=== PATIENT | male | born 1960 | race African-American/Black ===

== ENCOUNTER 2020-11-22 13:45 | Inpatient (IN) | payer BC ==
[~2020-11-22] VITALS: Ht 172.7 cm; Wt 103.3 kg
[2020-11-22 19:26] LABS: BASO # 0.1 10^3/uL (0.0-0.2); EOS # 0.1 10^3/uL (0.0-0.5); HEMATOCRIT 44.6 % (42.0-52.0); HEMOGLOBIN 14.7 g/dl (13.5-17.5); LYMPH % 38.5 % (24.0-44.0); MEAN CORPUSCULAR HEMOGLOBIN 33.1 pg (27.0-33.0); MEAN CORPUSCULAR VOLUME 100.5 fl (80.0-96.0); MONO # 0.6 10^3/uL (0.0-0.8); NEUTROPHILS # 2.4 10^3/uL (1.5-8.5); NEUTROPHILS % 46.3 % (36.0-66.0); PLATELET COUNT, AUTOMATED 192 10^3/uL (150-450); RED BLOOD COUNT 4.44 10^6/uL (4.30-6.10); WHITE BLOOD COUNT 5.1 10^3/uL (4.0-10.0)
[2020-11-22 19:53] LABS: BLOOD UREA NITROGEN 17 MG/DL (7-18); CALCIUM LEVEL 8.8 MG/DL (8.5-10.1); CARBON DIOXIDE LEVEL 29 MEQ/L (21-32); CHLORIDE LEVEL 110 MEQ/L (98-107); CREATININE FOR GFR 1.03 MG/DL (0.70-1.30); GLOMERULAR FILTRATION RATE > 60.0 (>56); GLUCOSE, FASTING 86 MG/DL (70-100); MAGNESIUM LEVEL 2.3 MG/DL (1.8-2.4); POTASSIUM SERUM 4.1 MEQ/L (3.5-5.1); SODIUM LEVEL 142 MEQ/L (136-145)
--- NOTE | 2020-11-22 20:32 | REPVR ---
PROCEDURE INFORMATION: Exam: CT Head Without Contrast Exam date and time: 11/22/2020 7:26 PM Age: 60 years old Clinical indication: Weakness, extremity; Right; Additional info: Right distal upper extremity weakness TECHNIQUE: Imaging protocol: Computed tomography of the head without contrast. Radiation optimization: All CT scans at this facility use at least one of these dose optimization techniques: automated exposure control; mA and/or kV adjustment per patient size (includes targeted exams where dose is matched to clinical indication); or iterative reconstruction. COMPARISON: No relevant prior studies available. FINDINGS: Brain: No intracranial mass, mass effect or midline shift. No acute intracranial hemorrhage. Focus of decreased brain attenuation, right frontal vertex measuring roughly 3 x 2 cm, axial image 20-21. Ventricles, cisterns, and sulci are otherwise normal in size for age. Paranasal sinuses: Imaged paranasal sinuses are normally aerated. Mastoid air cells: Mastoid air cells and middle ear structures are normally aerated. Orbital cavity: Imaged orbits are unremarkable. Bones/joints: No calvarial fracture or destructive process. Soft tissues: No focal extracranial soft tissue swelling. IMPRESSION: 1. No acute intracranial hemorrhage. 2. Focus of decreased right frontal parenchymal attenuation 3 x 2 cm which could represent an acute nonhemorrhagic infarct. Consider brain MRI Electronically signed by: Jaden Redd On 11/22/2020 20:31:56 PM
--- NOTE | 2020-11-22 20:35 | REPVR ---
PROCEDURE INFORMATION: Exam: CT Cervical Spine Without Contrast Exam date and time: 11/22/2020 7:26 PM Age: 60 years old Clinical indication: Weakness; Additional info: Right distal upper extremity weakness TECHNIQUE: Imaging protocol: Computed tomography images of the cervical spine without contrast. Radiation optimization: All CT scans at this facility use at least one of these dose optimization techniques: automated exposure control; mA and/or kV adjustment per patient size (includes targeted exams where dose is matched to clinical indication); or iterative reconstruction. COMPARISON: No relevant prior studies available. FINDINGS: Bones/joints: No traumatic segmental malalignment of cervical spine or craniocervical junction. Vertebral body height is maintained at all levels. No acute fracture. No destructive or blastic cervical spine osseous lesion. Discs/Spinal canal/Neural foramina: Intervertebral disc height is decreased at multiple levels, with typical degenerative pattern and associated endplate, articular pillar and uncovertebral spurs. Lungs: No concerning abnormality of the imaged lung apices. Soft tissues: Soft tissues show no concerning abnormality or asymmetry. IMPRESSION: 1. No acute fracture or traumatic subluxation of the cervical spine. 2. Multilevel degenerative disc and articular pillar arthropathy. Electronically signed by: Jaden Redd On 11/22/2020 20:34:39 PM
[2020-11-22] MEDS ORDERED: ATORVASTATIN 20 MG TAB PO ONE (21:15)
[2020-11-22] MEDS ORDERED: ASPIRIN 325 MG TAB PO ONE (21:15)
[2020-11-22] MEDS ORDERED: MAALOX 30 ML SUSP *UDC PO PRN (21:45)
[2020-11-22] MEDS ORDERED: ACETAMINOPHEN TAB 650MG DOSE (2X325MG) PO PRN (21:45)
[2020-11-22] MEDS ORDERED: LABETALOL 100MG/20ML VIAL IV PRN (21:45)
[2020-11-22] MEDS ORDERED: LORazepam 2 MG TAB PO PRN (21:45)
[2020-11-22] MEDS ORDERED: MOM 30ML SUSPENSION UDC PO PRN (21:45)
--- NOTE | 2020-11-22 21:52 | HPEPDOC ---
[facility] Medical History & Physical Date of Admission Nov 23, 2020 Date of Service: Nov 23, 2020 Attending Physician: FRANCIS FERRARI MD History and Physical TIME OF SERVICE: 955PM CHIEF COMPLAINT: weakness HISTORY OF PRESENT ILLNESS: For about 3 weeks has been feeling off. Over the last 5 days he has been feeling like he is in a mental fog. He lives in [place] but has a cabin in [address] [place] [address]; while driving to his cabin he suddenly found himself turning around to get on to the highway to [place] rather than stopping at his cabin. Over the last 3 days he has been making mistakes that are not characteristic and has had difficulties steering the wheel while he is driving. Over the last 2 days he noticed that his left hand was tingling, weak and he decided to come to the hospital today. He denies having any visual deficits, having difficulties walking or falling. 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 HOME MEDICATIONS: Please see below. PHYSICAL EXAMINATION: Vital Signs Date Time Temp Pulse Resp B/P (MAP) Pulse Ox O2 Delivery O2 Flow Rate FiO2 11/22/20 13:47 98.3 89 22 160/89 (112) 94 Room Air GENERAL APPEARANCE: well-nourished and developed/ NAD HEENT: EOMI / MMM&P CARDIOVASCULAR: RRR/NMRG LUNGS: CTAB on RA ABDOMEN: contour convex MUSCULOSKELETAL: NCAT / NURIS x 4 extremities INTEGUMENT: not diaphoretic NEUROLOGICAL: CN 2-12 grossly intact / speech not dysarthric / strength 5/5 except emergency room physician assistant strength at left hand is -5/5 PSYCHIATRIC: A&O x 3 / able to understand and follow all commands LABORATORY DATA: IMAGING: CT head IMPRESSION: 1. No acute intracranial hemorrhage. 2. Focus of decreased right frontal parenchymal attenuation 3 x 2 cm which could represent an acute nonhemorrhagic infarct. Consider brain MRI. CT cervical spine IMPRESSION: 1. No acute fracture or traumatic subluxation of the cervical spine. 2. Multilevel degenerative disc and articular pillar arthropathy. MRI brain IMPRESSION: Acute nonhemorrhagic multifocal infarcts, right frontal and parietal vertex and smaller lesions, right peritrigonal and posterior parietal. This may represent an embolic process or watershed distribution infarcts. CTA head IMPRESSION: Short-segment narrowing of the proximal right MCA M1 segment without atherosclerotic calcification and with normal enhancement distally. Roughly 50% short-segment diameter stenosis No intracranial large vessel arterial occlusive lesion. CTA neck IMPRESSION: Unremarkable CT Angiogram of the neck. MICROBIOLOGY: Respiratory panel negative ASSESSMENT: is a 60 yr old w a hx of HTN and class 1 obesity who is admitted for evaluation and management of acute multifocal embolic infarcts. PLAN: 1 Acute Multifocal Infarcts The symptoms have been present for several days therefore he was out of the tPA window discussed the CT scan findings with who recommended 325mg of ASA, completing the stroke work-u up and obtaining a SADIA (rather than TTE). Plan: admit to medical floor / telemetry for 48H /fall precautions / PT/OT/SPL consults / ARU screen / ASA 81mg daily / f/u lipid panel (target LDL 50% reduction from baseline) & for secondary prevention start statin / start low dose amlodipine / start escitalopram for 6 to 12 months (antidepressants post CVA have been shown to improve functional recovery and reduce dependency in individuals both with and without post stroke CVA) / f/u A1C / will ask the day time team to consult the Packing Machine Tender residential pest control technician for SADIA, if the SADIA is unrevealing the day time team may consider ordering a drug screen and Hypercoagulable work u p ( ESR, CRP, JANNIE, Lupus anticoagulant, Protein C & S, Antithrombin 3, Factor V) / f/u w (Neurologist tomorrow) 2 Essential HTN Plan: amlodipine 3 Alcohol Abuse Plan: thiamine, folic acid, MVI, Ativan per CIWA protocol, fall and seizure precautions 4 Class 1 obesity Complicates care DVT px w Heparin Dispo: home after at least 2 midnights stay Home Medications No Active Prescriptions or Reported Meds Allergies Coded Allergies: No Known Allergies (Unverified , 11/22/20) A-FIB/CHADSVASC A-FIB History Current/History of A-Fib/PAF?: No Current PO Anticoag Therapy: No FRANCIS FERRARI MD Nov 22, 2020 21:52
[2020-11-22] MEDS ORDERED: ISOVUE-370 76% 100ML VIAL As Ordered ONE (22:02)
[2020-11-22 22:47] LABS: CHOLESTEROL LEVEL 198 MG/DL (<200); HDL CHOLESTEROL 73 MG/DL (>40); TRIGLYCERIDES LEVEL 99 MG/DL (<150)
--- NOTE | 2020-11-22 22:47 | REPVR ---
PROCEDURE INFORMATION: Exam: MR Head Without Contrast Exam date and time: 11/22/2020 9:44 PM Age: 60 years old Clinical indication: Numbness / parasthesia; Left; Additional info: CVA TECHNIQUE: Imaging protocol: MR of the head without contrast. COMPARISON: CT Head without contrast 11/22/2020 7:16 PM FINDINGS: Correlating with findings on CT, at the right frontal and parietal vertex, there are multiple foci of abnormal diffusion and decreased ADC map signal consistent with acute nonhemorrhagic small vessel infarcts. The most confluent area lies just anterior to the central sulcus as seen on the CT. Similar small lesions are seen, right peritrigonal and posterior parietal at the parietooccipital junction. Corresponding abnormal T2 and FLAIR signal Midline structures and cerebellar tonsillar position appear normal. Ventricles, cisterns and sulci are symmetric and normal for age. No intracranial mass, midline shift or abnormal extra-axial fluid. No acute intracranial hemorrhage. No other abnormal white matter signal on FLAIR and T2 sequences. Optic chiasm and pituitary infundibulum appear normal. Normal vascular flow voids in major intracranial arteries and dural venous sinuses. Paranasal sinuses are normally aerated. Mastoid air cells are normally aerated. Optic globes and orbits are unremarkable. IMPRESSION: Acute nonhemorrhagic multifocal infarcts, right frontal and parietal vertex and smaller lesions, right peritrigonal and posterior parietal. This may represent an embolic process or watershed distribution infarcts Electronically signed by: Jaden Redd On 11/22/2020 22:47:29 PM
[2020-11-22 22:48] LABS: CHOLESTEROL RISK RATIO 2.712 (<5); LDL CHOLESTEROL 105 MG/DL (<100); NON-HDL-C 125 MG/DL
[2020-11-22 23:06] LABS: HEMOGLOBIN A1c 5.8 %
--- NOTE | 2020-11-22 23:28 | REPVR ---
PROCEDURE INFORMATION: Exam: CT Angiography Head With Contrast, Arteriography Exam date and time: 11/22/2020 9:44 PM Age: 60 years old Clinical indication: Other: Arm pain left; Additional info: CVA TECHNIQUE: Imaging protocol: Computed tomography angiography of the head with contrast. Exam focused on the arteries. 3D rendering (Not supervised by radiologist): MIP and/or 3D reconstructed images were created by the technologist. Radiation optimization: All CT scans at this facility use at least one of these dose optimization techniques: automated exposure control; mA and/or kV adjustment per patient size (includes targeted exams where dose is matched to clinical indication); or iterative reconstruction. Contrast material: ISO; Contrast volume: 100 ml; Contrast route: INTRAVENOUS (IV); COMPARISON: MRI-Brain without Contrast 11/22/2020 10:18 PM FINDINGS: Ventricles, cisterns and sulci are symmetric and appropriate for age. No intracranial mass or focal mass effect. No intracranial hemorrhage or midline shift. Left anterior circulation: Normal contrast opacification and luminal caliber in the petrous, cavernous and supraclinoid internal carotid arteries. Normal appearance of the anterior cerebral artery branches and middle cerebral artery branches through the MCA trifurcations. No occlusion, high-grade focal stenosis or dissection. No aneurysm. Right anterior circulation: Normal luminal caliber and enhancement in the petrous cavernous and supraclinoid right ICA.. Diminutive right A1 segment. Right anterior cerebral artery appears to be predominantly supplied by an anterior communicating artery. There is short-segment narrowing of the proximal right MCA M1 segment, on the order of 50% narrowed with normal enhancement distally. No visible atherosclerotic plaque in this region. This is seen best on series 401 image 27-29 Posterior circulation: Distal vertebral arteries enhance normally to the vertebrobasilar junction. Normally enhancing, normal caliber basilar artery, and normal superior cerebellar and posterior cerebral arteries. No occlusion, high-grade stenosis or aneurysm. Dural sinuses enhance normally. Bony structures show no acute fracture or destructive process. IMPRESSION: Short-segment narrowing of the proximal right MCA M1 segment without atherosclerotic calcification and with normal enhancement distally. Roughly 50% short-segment diameter stenosis No intracranial large vessel arterial occlusive lesion. Electronically signed by: Jaden Redd On 11/22/2020 23:28:03 PM
--- NOTE | 2020-11-22 23:30 | REPVR ---
PROCEDURE INFORMATION: Exam: CT Angiography Neck With Contrast Exam date and time: 11/22/2020 9:44 PM Age: 60 years old Clinical indication: Other: Arm pain left; Additional info: CVA TECHNIQUE: Imaging protocol: Computed tomography angiography of the neck with contrast. 3D rendering (Not supervised by radiologist): MIP and/or 3D reconstructed images were created by the technologist. Radiation optimization: All CT scans at this facility use at least one of these dose optimization techniques: automated exposure control; mA and/or kV adjustment per patient size (includes targeted exams where dose is matched to clinical indication); or iterative reconstruction. Contrast material: ISO; Contrast volume: 100 ml; Contrast route: INTRAVENOUS (IV); COMPARISON: CT Spine,cervical w/o contrast 11/22/2020 7:16 PM FINDINGS: Right common carotid, cervical ICA and proximal ECA demonstrate contrast opacification with no occlusion, flow limiting stenosis, or intimal flap to suggest dissection. Left common carotid, cervical ICA and proximal ECA demonstrate contrast opacification, with no occlusion, flow limiting stenosis, or intimal flap to suggest dissection. Vertebral arteries demonstrate normal course to the level of the skull base and show no occlusion, flow limiting stenosis or dissection. No flow limiting stenosis or anomaly of the great vessel origins. No concerning asymmetric neck soft tissue abnormality. IMPRESSION: Unremarkable CT Angiogram of the neck. REFERENCES: NASCET CRITERIA. The degree of internal carotid artery stenosis is based on NASCET criteria. Normal is no stenosis. Mild is less than 50% stenosis. Moderate is 50-69% stenosis. Severe is 70% to 99% stenosis. Total occlusion is no detectable patent lumen. Electronically signed by: Jaden Redd On 11/22/2020 23:30:07 PM
[2020-11-22] MEDS ORDERED: HOME MED LIST COMPLETE! XX SCH (23:45)
[2020-11-22 23:48] LABS: INR 1.1; PROTHROMBIN TIME 14.6 SECONDS (12.7-14.5)
[2020-11-22 23:49] LABS: PARTIAL THROMBOPLASTIN TIME 35.6 SECONDS (25.9-37.0)
[2020-11-23 01:52] LABS: RSV AMPLIFICATION NEGATIVE (NEGATIVE)
[2020-11-23] MEDS: HEPARIN SOD (PORCINE) 5000UNITS/ML 1ML VIAL/SYRINGE SC SCH ×3 (06:19→21:11)
[2020-11-23 08:21] LABS: HEMATOCRIT 44.9 % (42.0-52.0); HEMOGLOBIN 14.6 g/dl (13.5-17.5); MEAN CORPUSCULAR HEMOGLOBIN 32.5 pg (27.0-33.0); MEAN CORPUSCULAR HGB CONC 32.5 g/dl (32.0-36.5); PLATELET COUNT, AUTOMATED 182 10^3/uL (150-450); RED BLOOD COUNT 4.49 10^6/uL (4.30-6.10); WHITE BLOOD COUNT 4.6 10^3/uL (4.0-10.0)
[2020-11-23 08:40] LABS: BLOOD UREA NITROGEN 17 MG/DL (7-18); CALCIUM LEVEL 8.8 MG/DL (8.5-10.1); CARBON DIOXIDE LEVEL 28 MEQ/L (21-32); CHLORIDE LEVEL 109 MEQ/L (98-107); CREATININE FOR GFR 1.04 MG/DL (0.70-1.30); GLOMERULAR FILTRATION RATE > 60.0 (>56); GLUCOSE, FASTING 90 MG/DL (70-100); POTASSIUM SERUM 4.3 MEQ/L (3.5-5.1); SODIUM LEVEL 142 MEQ/L (136-145)
[2020-11-23] MEDS: FOLIC ACID 1 MG TAB PO SCH (09:48)
[2020-11-23] MEDS: ASPIRIN 81 MG CHEW TABLET PO SCH (09:48)
[2020-11-23] MEDS: MULTIVITAMINS/MINERALS THERAP 1 TAB PO SCH (09:48)
[2020-11-23] MEDS: ESCITALOPRAM OXALATE 5MG TABLET (LEXAPRO) PO SCH (09:48)
[2020-11-23] MEDS: ATORVASTATIN 20 MG TAB PO SCH (09:48)
[2020-11-23] MEDS: THIAMINE 100 MG TAB PO SCH ×2 (09:49→21:11)
--- NOTE | 2020-11-23 14:37 | CR ---
CONSULTATION DATE: 11/23/2020 REFERRING PHYSICIAN: FRANCIS FERRARI MD REASON FOR CONSULTATION: Left sided weakness. HISTORY OF PRESENT ILLNESS: Davion Singh is a 60-year-old man who was admitted to [facility] as he has been feeling off for the last three weeks according to the admission note. He told me in person that he has been feeling off since Saturday the week before, the last 10 days. The day he was driving home from work and felt he was off while driving. He thought as if he had mental fog. He has a cabin in this region and was staying at his cabin. Over the last few days, he started noticing that his left arm was weak. He thought that he may have pulled his left shoulder. He also started feeling left leg weakness. At times, he felt his speech was slurred. There was no problem with his vision. He had a headache one day over the last 10 days. He did not feel any irregular heartbeat or palpitations. He generally does not have much headaches. He denies any neck pain or back pain, dysphagia, diplopia, falls, loss of consciousness or head injuries. He saw his doctor who told him that he may be having a stroke and directed him to come to the Emergency Department. CT of the head showed focus of decreased attenuation in the right frontal region 3 x 2 cm in size concerning for ischemic stroke. CT scan of the cervical spine showed multilevel degenerative disc disease and facet joint arthritis. MRI scan of brain showed small multiple right frontoparietal peritrigonal ischemic strokes. CTA of the brain showed focal narrowing of right middle cerebral artery, 50%. CTA of neck was unremarkable. CBC was normal. Basic metabolic profile was normal. PAST MEDICAL HISTORY: 1. Possible hypertension. HOME MEDICATIONS: None except Male Overdrive for erection as needed. ALLERGIES: None. SOCIAL HISTORY: He denies smoking or illicit drugs. He drinks three alcoholic beverages a day. 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 FAMILY HISTORY: Father had diabetes. REVIEW OF SYSTEMS: All systems were reviewed and found to be noncontributory except as mentioned in the history of present illness. PHYSICAL EXAMINATION: Temperature is 98.3, pulse is 89, respiratory rate 22, blood pressure is 160/89, 94% saturation on room air. Heart: Regular rate and rhythm. Lungs are clear to auscultation. Abdomen is soft, nontender and nondistended. No pedal edema. No musculoskeletal abnormalities. No rash. No signs of meningeal irritation. Patient is awake, alert and oriented to place, person and time. Normal speech, comprehension and repetition. Extraocular muscles are intact. No facial weakness. Tongue and uvula are midline. 5/5 strength in right arm and leg. Left arm and left leg strength is 5-/5. He has slowing of left hand rapid movements. Normal sensation throughout. No dysmetria. Gait is normal. ASSESSMENT: 1. Small multiple right frontoparietal and peritrigonal acute ischemic strokes. 2. Hypertension. 3. Rule out cardiac source, coagulopathy and vasculopathy. PLAN: 1. Transesophageal echocardiogram and consider loop recorder if SADIA is unremarkable. 2. Blood tests to look for dyslipidemia, coagulopathy and vasculopathy. 3. Aspirin 81 mg p.o. daily and Plavix 75 mg p.o. daily until all of his test results are available. 4. Lipitor 40 mg p.o. daily. 5. Allow permissive hypertension and keep systolic blood pressure below 180 and diastolic blood pressure below 100. 6. Follow-up with is primary care physician in [place], [place]. If patient stays in this region, he can follow-up with our office as well in 1-2 weeks after hospital discharge. He should follow-up with Cardiology if he does get a loop recorder if SADIA is unremarkable.
--- NOTE | 2020-11-23 14:43 | IPNPDOC ---
Text Note Date of Service The patient was seen on 11/23/20. NOTE Subjective: No any acute events overnight. Patient stated that he feels better in the morning but continues to have slight weakness of the left part of the body Objective: GENERAL APPEARANCE: NAD HEENT: no scleral icterus, no JVD, EOMI CARDIOVASCULAR: S1S2 LUNGS: CTA ABDOMEN: soft & not tender w palpation MUSCULOSKELETAL: no cyanosis, no swelling INTEGUMENT: no generalized pallor NEUROLOGICAL: Left mouth droop, left arm strength 4 out of 5, left leg strength 4 out of 5, follows commands, speech not dysarthric Assessment and plan Patient is 60 years old male with past medical history of hypertension presented to hospital with left-sided weakness. Patient was found to have on MRI Acute nonhemorrhagic multifocal infarcts, right frontal and parietal vertex and smaller lesions, right peritrigonal and posterior parietal Acute ischemic multifocal Infarcts Neurology team recommended SADIA CTA neck did not show significant carotid stenosis Aspirin 81 mg daily, statin Coagulation panel I talked to Dr. Rodriguez, he will proceed with SADIA and loop recorder placement if patient agrees Telemetry PT/OT Alcohol abuse Continue CIWA Obesity BMI 34.6 Complicated care Hypertension Continue amlodipine Blood pressure under control DVT prophylaxis with heparin VS,Fishbone, I+O VS, Fishbone, I+O Laboratory Tests 11/22/20 18:51 11/23/20 07:52 Vital Signs Date Time Temp Pulse Resp B/P (MAP) Pulse Ox O2 Delivery O2 Flow Rate FiO2 11/23/20 14:11 97.3 74 16 140/83 (102) 97 Room Air RONIT NEWELL Nov 23, 2020 14:43
[2020-11-23 14:59] VITALS: BP 138/82
[2020-11-23 15:00] VITALS: BP 138/82
[2020-11-23] MEDS: CLOPIDOGREL 75 MG TAB PO SCH (15:10)
[2020-11-23 18:00] VITALS: BP 157/89
--- NOTE | 2020-11-23 19:03 | ECGEPIP ---
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
[2020-11-23 19:30] VITALS: BP 152/89
[2020-11-23 23:30] VITALS: BP 138/86
[2020-11-24] VITALS (7 sets, daily range): BP systolic 136–155; BP diastolic 79–101
[2020-11-24 05:58] LABS: BASO % 0.9 % (0.0-1.0); EOS # 0.1 10^3/uL (0.0-0.5); EOS % 1.2 % (0.0-3.0); HEMATOCRIT 43.2 % (42.0-52.0); HEMOGLOBIN 14.2 g/dl (13.5-17.5); LYMPH # 1.3 10^3/uL (1.5-5.0); LYMPH % 29.4 % (24.0-44.0); MEAN CORPUSCULAR HEMOGLOBIN 32.5 pg (27.0-33.0); MEAN CORPUSCULAR HGB CONC 32.9 g/dl (32.0-36.5); MEAN CORPUSCULAR VOLUME 98.9 fl (80.0-96.0); MONO # 0.5 10^3/uL (0.0-0.8); NEUTROPHILS # 2.5 10^3/uL (1.5-8.5); PLATELET COUNT, AUTOMATED 183 10^3/uL (150-450); RED BLOOD COUNT 4.37 10^6/uL (4.30-6.10); WHITE BLOOD COUNT 4.3 10^3/uL (4.0-10.0)
[2020-11-24] MEDS: HEPARIN SOD (PORCINE) 5000UNITS/ML 1ML VIAL/SYRINGE SC SCH ×3 (05:59→20:33)
[2020-11-24 06:26] LABS: ALBUMIN 3.2 GM/DL (3.2-5.2); ALT/SGPT 25 U/L (12-78); BILIRUBIN,TOTAL 0.5 MG/DL (0.2-1.0); BLOOD UREA NITROGEN 14 MG/DL (7-18); CALCIUM LEVEL 8.8 MG/DL (8.5-10.1); CARBON DIOXIDE LEVEL 27 MEQ/L (21-32); CHLORIDE LEVEL 106 MEQ/L (98-107); GLOMERULAR FILTRATION RATE > 60.0 (>56); GLUCOSE, FASTING 107 MG/DL (70-100); MAGNESIUM LEVEL 2.3 MG/DL (1.8-2.4); POTASSIUM SERUM 4.2 MEQ/L (3.5-5.1); SODIUM LEVEL 141 MEQ/L (136-145); TOTAL PROTEIN 6.9 GM/DL (6.4-8.2)
--- NOTE | 2020-11-24 08:41 | ECGEPIP ---
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
[2020-11-24] MEDS: ASPIRIN 81 MG CHEW TABLET PO SCH (09:39)
[2020-11-24] MEDS: ESCITALOPRAM OXALATE 5MG TABLET (LEXAPRO) PO SCH (09:39)
[2020-11-24] MEDS: FOLIC ACID 1 MG TAB PO SCH (09:42)
[2020-11-24] MEDS: ATORVASTATIN 20 MG TAB PO SCH (09:42)
[2020-11-24] MEDS: MULTIVITAMINS/MINERALS THERAP 1 TAB PO SCH (09:43)
[2020-11-24] MEDS: THIAMINE 100 MG TAB PO SCH ×2 (09:43→20:32)
[2020-11-24] MEDS: CLOPIDOGREL 75 MG TAB PO SCH (09:43)
--- NOTE | 2020-11-24 10:11 | IPNPDOC ---
Text Note Date of Service The patient was seen on 11/24/20. NOTE Subjective: No any acute events overnight. Patient stated that he feels better, left mouth droop significantly improved Objective: GENERAL APPEARANCE: NAD HEENT: no scleral icterus, no JVD, EOMI CARDIOVASCULAR: S1S2 LUNGS: CTA ABDOMEN: soft & not tender w palpation MUSCULOSKELETAL: no cyanosis, no swelling INTEGUMENT: no generalized pallor NEUROLOGICAL: Left mouth droop, left arm strength 4 out of 5, left leg strength 4 out of 5, follows commands, speech not dysarthric Assessment and plan Patient is 60 years old male with past medical history of hypertension presented to hospital with left-sided weakness. Patient was found to have on MRI Acute nonhemorrhagic multifocal infarcts, right frontal and parietal vertex and smaller lesions, right peritrigonal and posterior parietal Acute ischemic multifocal Infarcts Neurology team recommended SADIA CTA neck did not show significant carotid stenosis Aspirin 81 mg daily, Plavix 75 mg daily, statin Coagulation panel pending Lipid panel shows increased LDL to [address] Rodriguez, he will proceed with SADIA and loop recorder placement today Telemetry shows no atrial fibrillation overnight EKG shows sinus rhythm PT/OT Alcohol abuse Continue CIWA Obesity BMI 34.6 Complicated care Hypertension I increased the dose of amlodipine from 2.5 to 5 mg for better blood pressure control DVT prophylaxis with heparin VS,Fishbone, I+O VS, Fishbone, I+O Laboratory Tests 11/24/20 05:36 Vital Signs Date Time Temp Pulse Resp B/P (MAP) Pulse Ox O2 Delivery O2 Flow Rate FiO2 11/24/20 09:43 72 155/101 11/24/20 03:30 96.7 15 98 Room Air I&O- Last 24 Hours up to 6 AM 11/24/20 06:00 Intake Total 380 ml Output Total 0 ml Balance 380 ml RONIT NEWELL DO Nov 24, 2020 10:11
[2020-11-24] MEDS ORDERED: LIDOCAINE 1% SDV 30ML VIAL As Ordered ONE (13:36)
[2020-11-24] MEDS ORDERED: propofoL 200 MG/20 ML VIAL As Ordered ONE (14:05)
[2020-11-24] MEDS ORDERED: MIDAZOLAM INJ 2MG/2ML VIAL (J2250 PER 1MG) As Ordered ONE ×2 (14:10→15:04)
[2020-11-24] MEDS ORDERED: fentaNYL 100 MCG/2 ML INJECTION (J3010) As Ordered ONE (14:10)
[2020-11-24] MEDS ORDERED: CETACAINE SPRAY 5GM As Ordered ONE (14:28)
[2020-11-24] MEDS ORDERED: ceFAZolin 1GM VIAL (J0690 PER 500MG) As Ordered ONE (14:29)
[2020-11-24] MEDS: ceFAZolin SOD 1 GM in D5W MINI-BAG PLUS 50 ML IV SCH ×2 (14:30→16:34)
[2020-11-24] MEDS ORDERED: GLYCOPYRROLATE INJ 0.2 MG/ML 2 ML VIAL As Ordered ONE (15:04)
--- NOTE | 2020-11-24 16:34 | RO ---
OPERATIVE NOTE DATE OF OPERATION: 11/24/2020 PREOPERATIVE DIAGNOSIS: Cardiogenic stroke. POSTOPERATIVE DIAGNOSIS: Cardiogenic stroke. FINDINGS: Cardiogenic stroke. PROCEDURE PERFORMED: Implantation of Medtronic subcutaneous cardiac rhythm monitor. SURGEON: Juaquin Rodriguez M.D. INDUSTRIAL RADIOGRAPHER: None. ANESTHESIA: Lidocaine 1% local/monitored anesthetic care. SPECIMENS: None. ESTIMATED BLOOD LOSS: Less than 1 mL. BLOOD PRODUCTS REPLACED: None. DRAINS: None. COMPLICATIONS: None. PROCEDURE DESCRIPTION: Patient was prepped and draped over the left anterior chest. An incision approximately 1 cm in length was made with a #15 blade at approximately the left fourth interspace one inch lateral to the left parasternal border. Lidocaine 1% was used for local anesthetic. The guide and the insertion tool was placed into the incision and advanced in a caudal direction parallel to the anterior chest in the subcutaneous tissue. The insertion tool was rotated 180 degrees. Next, the punch was placed into insertion tool and used to advance the cardiac rhythm monitor into the subcutaneous tissue. The punch was removed and then the insertion tool was removed, leaving the cardiac rhythm monitor in situ. The skin was then approximated temporarily using a 4-0 Biosyn placed subcuticular with the free ends of the suture protruding 1 cm through the skin on both ends. Next, three layers of Dermabond was applied. The suture was used to keep tension on the incision line to keep it nice and close together until the glue dried. Once Dermabond was dried, the Biosyn suture was pulled through the incision line and removed entirely. The patient tolerated the procedure well without any immediate complications. The subcutaneous cardiac nurse implanted was a Medtronic LINQ II, model LNQ22 with serial #[id number]. Initial R wave amplitude was 0.32 millivolts. Good P wave and QRS morphology was visible on visual inspection. Dannie Beebe MD
--- NOTE | 2020-11-24 16:34 | ECHO ---
ECHOCARDIOGRAM DATE OF PROCEDURE: 11/24/2020 PREPROCEDURE DIAGNOSIS: Cryptogenic stroke. POSTPROCEDURE DIAGNOSIS: Cryptogenic stroke. FINDINGS: Normal transesophageal echocardiogram. Negative saline bubble study for detection of intracardiac shunting. PROCEDURE PERFORMED: Transesophageal echocardiogram with saline bubble study. PROCEDURE PERFORMED BY: Juaquin Rodriguez M.D. SENIOR ACCOUNTING ANALYST: None. INTRAVENOUS SEDATION: Intravenous (IV) propofol per FILLING AND STAPLING MACHINE OPERATOR. COMPLICATIONS: None. PROCEDURE DESCRIPTION: Rhythm was sinus. Patient received Cetacaine spray to the back of the pharynx at the start of the procedure. After receiving IV sedation with IV propofol administered by the FILLING AND STAPLING MACHINE OPERATOR, the esophageal intubation was accomplished without difficulty by Dr. Rodriguez using a [employer] 3-dimensional transesophageal echocardiogram probe. The rhythm was sinus. The left and right ventricles appeared normal in size and systolic function and without regional wall motion abnormalities. Left ventricular ejection fraction appeared 60%-65% by visual assessment. All the cardiac valves were structurally and functionally normal. Trace mitral regurgitation was present and mild pulmonic regurgitation was present and within physiologic limits. No masses, thrombi, or vegetations were seen in the heart. Atrial septum appeared intact anatomically and by color flow Doppler. Saline bubble study times one was performed using 8 mm of normal saline, 1 mL of propofol, and 1 mL of air, which was agitated back and forth between two 10 mL syringes via a 3-way stop clock, and its contents were injected by the FILLING AND STAPLING MACHINE OPERATOR for the bubble study. Patient was sedated to the point where he could not cooperate with performing a Valsalva maneuver, so instead a belly push was performed. No shunting of bubbles was seen from right heart to left heart, and no bubbles were seen entering the left atrium at all. No pericardial effusion. Distal aortic arch and ascending thoracic aorta were normal. CONCLUSIONS: 1. Normal transesophageal echocardiogram (SADIA). 2. Negative saline bubble study for detection of right to left intracardiac shunting or right to left intrapulmonary shunting.
[2020-11-25] MEDS ORDERED: NS 3,100 ML in IV 1 EA IV ONE (01:30)
[2020-11-25 01:48] VITALS: BP 133/78
[2020-11-25] MEDS ORDERED: VANCOMYCIN HCL 1,000 MG, VIAL MATE ADAPTER 1 EACH in NS 250 ML IV ONE ×3 (02:00→06:00)
[2020-11-25 02:03] LABS: BASO % 0.3 % (0.0-1.0); EOS % 0.1 % (0.0-3.0); HEMATOCRIT 41.5 % (42.0-52.0); HEMOGLOBIN 13.8 g/dl (13.5-17.5); LYMPH % 9.8 % (24.0-44.0); MEAN CORPUSCULAR HEMOGLOBIN 32.5 pg (27.0-33.0); MEAN CORPUSCULAR HGB CONC 33.3 g/dl (32.0-36.5); MEAN CORPUSCULAR VOLUME 97.9 fl (80.0-96.0); MONO # 0.5 10^3/uL (0.0-0.8); MONO % 4.5 % (2.0-8.0); NEUTROPHILS # 8.8 10^3/uL (1.5-8.5); NEUTROPHILS % 84.9 % (36.0-66.0); PLATELET COUNT, AUTOMATED 170 10^3/uL (150-450); RED BLOOD COUNT 4.24 10^6/uL (4.30-6.10); WHITE BLOOD COUNT 10.3 10^3/uL (4.0-10.0)
[2020-11-25 02:38] LABS: ALBUMIN 3.1 GM/DL (3.2-5.2); ALT/SGPT 25 U/L (12-78); BILIRUBIN,TOTAL 0.4 MG/DL (0.2-1.0); BLOOD UREA NITROGEN 16 MG/DL (7-18); CALCIUM LEVEL 8.3 MG/DL (8.5-10.1); CARBON DIOXIDE LEVEL 25 MEQ/L (21-32); CHLORIDE LEVEL 105 MEQ/L (98-107); CREATININE FOR GFR 1.25 MG/DL (0.70-1.30); GLOMERULAR FILTRATION RATE > 60.0 (>56); GLUCOSE, FASTING 152 MG/DL (70-100); POTASSIUM SERUM 4.3 MEQ/L (3.5-5.1); SODIUM LEVEL 140 MEQ/L (136-145); TOTAL PROTEIN 6.7 GM/DL (6.4-8.2)
--- NOTE | 2020-11-25 02:43 | IPNPDOC ---
Text Note Date of Service The patient was seen on 11/25/20. NOTE #SIRS vs Sepsis The patient has had fevers w a HR >95. Plan: initiate code purple / start Vancomycin & Zosyn pending blood cx, UA, chest xray, lactic acid and MRSA results VS,Fishbone, I+O VS, Fishbone, I+O Laboratory Tests 11/24/20 05:36 11/25/20 01:48 Vital Signs Date Time Temp Pulse Resp B/P (MAP) Pulse Ox O2 Delivery O2 Flow Rate FiO2 11/25/20 01:48 98.8 86 18 133/78 (96) 98 Room Air I&O- Last 24 Hours up to 6 AM 11/25/20 05:59 Intake Total 900 ml Output Total 0 ml Balance 900 ml FRANCIS FERRARI MD Nov 25, 2020 02:43
--- NOTE | 2020-11-25 04:25 | REPVR ---
PROCEDURE INFORMATION: Exam: XR Chest Exam date and time: 11/25/2020 2:09 AM Age: 60 years old Clinical indication: Other: Fever and tachycardia TECHNIQUE: Imaging protocol: XR of the chest. Views: 1 view. COMPARISON: No relevant prior studies available. FINDINGS: Tubes, catheters and devices: Overlying leads. Cardiac loop recorder. Lungs: Patchy right perihilar and confluent right lower lung airspace opacity. Left lung is clear. Pleural spaces: Unremarkable. No pleural effusion. No pneumothorax. Heart/Mediastinum: Unremarkable. No cardiomegaly. Bones/joints: Unremarkable. IMPRESSION: Patchy and confluent infiltrate within the right perihilar region and right lower lung consistent with pneumonia. Follow-up chest radiographs are recommended to ensure resolution. Electronically signed by: Sean Bryan On 11/25/2020 04:25:09 AM
[2020-11-25] MEDS: HEPARIN SOD (PORCINE) 5000UNITS/ML 1ML VIAL/SYRINGE SC SCH ×3 (05:18→21:00)
[2020-11-25] MEDS: PIPERACILLIN/TAZOBACTAM SOD 3.375 GM in D5W MINI-BAG PLUS 50 ML IV SCH ×4 (05:18→20:59)
[2020-11-25 06:00] VITALS: BP 135/78
[2020-11-25] MEDS ORDERED: ceFAZolin SOD 2 GM in IV 1 EA IV ONE (06:00)
[2020-11-25 06:36] LABS: HEMATOCRIT 37.1 % (42.0-52.0); HEMOGLOBIN 12.5 g/dl (13.5-17.5); MEAN CORPUSCULAR HEMOGLOBIN 32.9 pg (27.0-33.0); MEAN CORPUSCULAR HGB CONC 33.7 g/dl (32.0-36.5); MEAN CORPUSCULAR VOLUME 97.6 fl (80.0-96.0); PLATELET COUNT, AUTOMATED 159 10^3/uL (150-450)
[2020-11-25 06:57] LABS: ALBUMIN 2.7 GM/DL (3.2-5.2); ALT/SGPT 20 U/L (12-78); BILIRUBIN,TOTAL 0.5 MG/DL (0.2-1.0); BLOOD UREA NITROGEN 13 MG/DL (7-18); CALCIUM LEVEL 7.4 MG/DL (8.5-10.1); CARBON DIOXIDE LEVEL 22 MEQ/L (21-32); CHLORIDE LEVEL 110 MEQ/L (98-107); CREATININE FOR GFR 0.98 MG/DL (0.70-1.30); GLOMERULAR FILTRATION RATE > 60.0 (>56); GLUCOSE, FASTING 118 MG/DL (70-100); MAGNESIUM LEVEL 1.7 MG/DL (1.8-2.4); SODIUM LEVEL 142 MEQ/L (136-145); TOTAL PROTEIN 5.9 GM/DL (6.4-8.2)
[2020-11-25 07:02] LABS: ATYPICAL LYMPH 4 % (0-5); LYMPHOCYTES 9 % (16-44); MONOCYTES 6 % (0-5); NEUTROPHILS 79 % (28-66); PLATELET ESTIMATE NORMAL (NORMAL); POLYCHROMASIA 1+
[2020-11-25 07:03] LABS: ANISOCYTOSIS 1+
--- NOTE | 2020-11-25 07:30 | T-ECHO ---
DATE OF PROCEDURE: 11/24/2020 PREPROCEDURE DIAGNOSIS: Cryptogenic stroke. POSTPROCEDURE DIAGNOSIS: Cryptogenic stroke. FINDINGS: Normal transesophageal echocardiogram. Negative saline bubble study for detection of intracardiac shunting. PROCEDURE PERFORMED: Transesophageal echocardiogram with saline bubble study. PROCEDURE PERFORMED BY: Juaquin Rodriguez M.D. COMPUTATIONAL SCIENTIST: None. INTRAVENOUS SEDATION: Intravenous (IV) propofol per SPECIAL MACHINE STITCHER. COMPLICATIONS: None. PROCEDURE DESCRIPTION: Rhythm was sinus. Patient received Cetacaine spray to the back of the pharynx at the start of the procedure. After receiving IV sedation with IV propofol administered by the SPECIAL MACHINE STITCHER, the esophageal intubation was accomplished without difficulty by Dr. Rodriguez using a [employer] 3-dimensional transesophageal echocardiogram probe. The rhythm was sinus. The left and right ventricles appeared normal in size and systolic function and without regional wall motion abnormalities. Left ventricular ejection fraction appeared 60%-65% by visual assessment. All the cardiac valves were structurally and functionally normal. Trace mitral regurgitation was present and mild pulmonic regurgitation was present and within physiologic limits. No masses, thrombi, or vegetations were seen in the heart. Atrial septum appeared intact anatomically and by color flow Doppler. Saline bubble study times one was performed using 8 mm of normal saline, 1 mL of propofol, and 1 mL of air, which was agitated back and forth between two 10 mL syringes via a 3-way stop clock, and its contents were injected by the SPECIAL MACHINE STITCHER for the bubble study. Patient was sedated to the point where he could not cooperate with performing a Valsalva maneuver, so instead a belly push was performed. No shunting of bubbles was seen from right heart to left heart, and no bubbles were seen entering the left atrium at all. No pericardial effusion. Distal aortic arch and ascending thoracic aorta were normal. CONCLUSIONS: 1. Normal transesophageal echocardiogram (SADIA). 2. Negative saline bubble study for detection of right to left intracardiac shunting or right to left intrapulmonary shunting. [facility]
[2020-11-25] MEDS: ASPIRIN 81 MG CHEW TABLET PO SCH (09:36)
[2020-11-25] MEDS: ESCITALOPRAM OXALATE 5MG TABLET (LEXAPRO) PO SCH (09:36)
[2020-11-25] MEDS: ATORVASTATIN 20 MG TAB PO SCH (09:36)
[2020-11-25] MEDS: FOLIC ACID 1 MG TAB PO SCH (09:36)
[2020-11-25] MEDS: amLODIPine 5 MG TAB PO SCH (09:37)
[2020-11-25] MEDS: CLOPIDOGREL 75 MG TAB PO SCH (09:37)
[2020-11-25] MEDS: MULTIVITAMINS/MINERALS THERAP 1 TAB PO SCH (09:37)
[2020-11-25] MEDS: THIAMINE 100 MG TAB PO SCH ×2 (09:37→20:59)
[2020-11-25 14:00] VITALS: BP_SYST 141; BP_SYST 195; BP_DIAS 79; BP_DIAS 83
--- NOTE | 2020-11-25 16:00 | IPNPDOC ---
Text Note Date of Service The patient was seen on 11/25/20. NOTE Subjective: Patient is a 60-year-old male who initially presented with left arm weakness and was diagnosed with a stroke who was found to have a fever last night who was found to have pneumonia. Patient says he was feeling weak last night but is feeling better. Patient was started on antibiotics and states he is doing well at this time. Review of systems: General: Patient denies fevers HEENT: Patient denies headaches Cardiovascular: Patient denies chest pain Respiratory: Patient denies shortness of breath, cough GI: Patient denies abdominal pain, nausea, vomiting, diarrhea : Patient denies increased frequency or pain with urination Extremities: Patient denies swelling or pain in extremities Neurological: Patient denies numbness or tingling in legs Physical exam: Vitals: See below General: Alert and oriented male patient who was sitting up in bed when I walked in. Patient did not appear to be in any acute distress. HEENT: Normocephalic, atraumatic, moist mucous membranes. Neck: No lymphadenopathy or thyromegaly Cardiac: Regular rate and rhythm, no murmurs, normal S1, normal S2 Pulm: Crackles in the right base otherwise clear to auscultation bilaterally Abd: Nondistended, nontender to palpation, normal bowel sounds Ext: No edema bilateral lower extremities Neuro: Patient has 5/5 strength in right upper extremity but 4/5 strength in the left upper extremity Labs: See below Imaging: Chest x-ray performed on 11/25/2020 is reported to show patchy inf iltrate within the right perihilar region and right lower lung consistent with pneumonia. Follow-up chest radiographs are recommended to ensure resolution. Assessment/plan: 60-year-old male who initially presented with a CVA who was found to have pneumonia after being septic last night. 1. SIRS versus sepsis. Patient was found to have a fever of greater than 101 F taken orally, leukocytosis of 10.3 with a heart rate of 95 with a lactic acidosis. Patient was initially started on vancomycin and Zosyn however, once the pneumonia was found in his MRSA screen was negative, vancomycin has been discontinued at this time. We will continue to monitor the patient. Patient can be switched to oral antibiotics hopefully tomorrow as his sepsis is resolved and patient may build to be discharged tomorrow. 2. Pneumonia. We will continue with IV Zosyn at this time and switch him over to oral. 3. CVA. Patient had SADIA and loop recorder placed. SADIA was normal according to the report with a negative saline bubble study for detection of intracardiac shunting. Patient will need physical therapy upon discharge. 4. Alcohol abuse. Continue CIWA. 5. Obesity. BMI is 34.6 and is complicating patient's care. 6. Hypertension. Amlodipine was increased in 2.5 to 5 mg for better blood pr essure control. Will need to continue to monitor. DVT Prophylaxis: Heparin Disposition: Pending improvement in patient's pneumonia, hopeful discharge tomorrow. VS,Fishbone, I+O VS, Fishbone, I+O Laboratory Tests 11/25/20 01:48 11/25/20 06:17 Vital Signs Date Time Temp Pulse Resp B/P (MAP) Pulse Ox O2 Delivery O2 Flow Rate FiO2 11/25/20 14:00 98.0 78 23 195/79 (117) 97 Room Air I&O- Last 24 Hours up to 6 AM 11/25/20 06:00 Intake Total 4200 ml Output Total 0 ml Balance 4200 ml ISAÍAS WEBER DO Nov 25, 2020 16:00
[2020-11-25 16:10] LABS: CARDIOLIPIN IGA ANTIBODY <9 APL U/mL (0-11); CARDIOLIPIN IGG ANTIBODY <9 GPL U/mL (0-14); CARDIOLIPIN IGM ANTIBODY 14 MPL U/mL (0-12)
[2020-11-25] MEDS ORDERED: VANCOMYCIN HCL 750 MG, VIAL MATE ADAPTER 1 EACH in NS 250 ML IV SCH ×2 (19:00→20:00)
[2020-11-25 22:00] VITALS: BP 140/83
[2020-11-26] MEDS: PIPERACILLIN/TAZOBACTAM SOD 3.375 GM in D5W MINI-BAG PLUS 50 ML IV SCH (02:28)
[2020-11-26] MEDS: HEPARIN SOD (PORCINE) 5000UNITS/ML 1ML VIAL/SYRINGE SC SCH ×2 (05:15→14:30)
[2020-11-26 06:00] VITALS: BP 129/76
[2020-11-26 06:37] LABS: BASO % 0.5 % (0.0-1.0); EOS # 0.2 10^3/uL (0.0-0.5); EOS % 1.9 % (0.0-3.0); HEMATOCRIT 38.1 % (42.0-52.0); HEMOGLOBIN 12.6 g/dl (13.5-17.5); LYMPH # 1.4 10^3/uL (1.5-5.0); MEAN CORPUSCULAR HGB CONC 33.1 g/dl (32.0-36.5); MEAN CORPUSCULAR VOLUME 99.7 fl (80.0-96.0); MONO # 0.5 10^3/uL (0.0-0.8); NEUTROPHILS # 5.6 10^3/uL (1.5-8.5); PLATELET COUNT, AUTOMATED 172 10^3/uL (150-450); RED BLOOD COUNT 3.82 10^6/uL (4.30-6.10); WHITE BLOOD COUNT 7.8 10^3/uL (4.0-10.0)
[2020-11-26 07:04] LABS: ALBUMIN 2.9 GM/DL (3.2-5.2); ALT/SGPT 22 U/L (12-78); BILIRUBIN,TOTAL 0.6 MG/DL (0.2-1.0); BLOOD UREA NITROGEN 12 MG/DL (7-18); CALCIUM LEVEL 8.2 MG/DL (8.5-10.1); CARBON DIOXIDE LEVEL 24 MEQ/L (21-32); CHLORIDE LEVEL 109 MEQ/L (98-107); GLOMERULAR FILTRATION RATE > 60.0 (>56); GLUCOSE, FASTING 94 MG/DL (70-100); MAGNESIUM LEVEL 2.2 MG/DL (1.8-2.4); POTASSIUM SERUM 3.9 MEQ/L (3.5-5.1); SODIUM LEVEL 142 MEQ/L (136-145); TOTAL PROTEIN 6.3 GM/DL (6.4-8.2)
[2020-11-26] MEDS ORDERED: LevoFLOXacin 750 MG TABLET PO SCH (07:45)
[2020-11-26] MEDS: MULTIVITAMINS/MINERALS THERAP 1 TAB PO SCH (09:09)
[2020-11-26] MEDS: ESCITALOPRAM OXALATE 5MG TABLET (LEXAPRO) PO SCH (09:09)
[2020-11-26] MEDS: CLOPIDOGREL 75 MG TAB PO SCH (09:09)
[2020-11-26] MEDS: FOLIC ACID 1 MG TAB PO SCH (09:09)
[2020-11-26] MEDS: ASPIRIN 81 MG CHEW TABLET PO SCH (09:09)
[2020-11-26] MEDS: ATORVASTATIN 20 MG TAB PO SCH (09:09)
[2020-11-26 09:11] VITALS: BP 152/89
[2020-11-26] MEDS: amLODIPine 5 MG TAB PO SCH (09:11)
[2020-11-26] MEDS ORDERED: LEXA5TAB13 PO (09:44)
[2020-11-26] MEDS ORDERED: LEVO750T13 PO (09:44)
[2020-11-26] MEDS ORDERED: AMLO1TAB24 PO (09:44)
[2020-11-26] MEDS ORDERED: ASPI81CH8 PO (09:44)
[2020-11-26] MEDS ORDERED: ATOR1TAB21 PO (09:44)
[2020-11-26] MEDS ORDERED: CLOP75TA2 PO (09:44)
[2020-11-26] MEDS ORDERED: AZIT500T5 PO (11:38)
[2020-11-26] MEDS ORDERED: CEFD300CAP PO (11:38)
[2020-11-26 13:54] VITALS: BP_SYST 152; BP_SYST 154; BP_SYST 155; BP_DIAS 91
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
[2020-12-02 11:49] LABS: DRVV SCREEN 45.2 SEC
[2020-12-02 11:53] LABS: PTT LUPUS TYPE ANTICOAG SCREEN 1.2 (0-1.2)
[2020-12-02 12:05] LABS: NORMALIZED RATIO 1.2 (0.00-1.20)
== END 2020-11-26 15:58 | disposition home health service (06) | DRG 45 ==
LOC: M ED 13:45 → M ED INP 21:44 → ENRESERV 11-23 13:32 → M MSPAV 11-23 14:57
PROVIDERS: ADMIT Internal Medicine; ATTEND Family Medicine
PROC: B246ZZ4 Ultrasonography of Right and Left Heart, Transesophageal (ICD-10-PCS; 2020-11-24)
PROC: 0JH632Z Insertion of Monitoring Device into Chest Subcutaneous Tissue and Fascia, Percutaneous Approach (ICD-10-PCS; principal; 2020-11-24 14:00)
DX: I63.9 Cerebral infarction, unspecified (principal); I10 Essential (primary) hypertension; F10.10 Alcohol abuse, uncomplicated; E11.9 Type 2 diabetes mellitus without complications; Z68.34 Body mass index [BMI] 34.0-34.9, adult; G81.94 Hemiplegia, unspecified affecting left nondominant side; J18.9 Pneumonia, unspecified organism; Z20.822 Contact with and (suspected) exposure to COVID-19

== ENCOUNTER → 2022-03-19 | Outpatient (REF) | payer OTHER ==
[~2022-03-19] MED LIST: AMLO1TAB24 PO; ASPI81CH8 PO; ATOR1TAB21 PO; AZIT500T5 PO; CEFD300CAP PO; CLOP75TA2 PO; LEVO1TAB40 PO; LEXA5TAB13 PO
[2022-03-19 19:19] LABS: ALKALINE PHOSPHATASE 99 U/L (46-116); ALT/SGPT 21 U/L (7.0-40); AST/SGOT 20 U/L (<34); BILIRUBIN,TOTAL 0.8 MG/DL (0.3-1.2); BLOOD UREA NITROGEN 15 MG/DL (9-23); CALCIUM LEVEL 9.4 MG/DL (8.5-10.1); CARBON DIOXIDE LEVEL 27 MMOL/L (20-31); CHLORIDE LEVEL 106 MMOL/L (98-107); CHOLESTEROL LEVEL 118 MG/DL (<200); CHOLESTEROL RISK RATIO 1.79 (<5); CREATININE FOR GFR 0.94 MG/DL (0.70-1.30); GLOMERULAR FILTRATION RATE > 60.0 (>56); GLUCOSE, FASTING 95 MG/DL (60-100); HDL CHOLESTEROL 65.6 MG/DL (>40); LDL CHOLESTEROL 42.8 MG/DL (<100); NON-HDL-C 52 MG/DL; POTASSIUM SERUM 4.6 MMOL/L (3.5-5.1); SODIUM LEVEL 141 MMOL/L (136-145); TOTAL PROTEIN 7.3 G/DL (5.7-8.2); TRIGLYCERIDES LEVEL 48 MG/DL (<150)
[2022-03-19 19:21] LABS: HEMOGLOBIN A1c 5.6 % (4.0-6.0)
[2022-03-19 19:25] LABS: THYROID STIMULATING HORMONE 0.961 uIU/ML (0.55-4.78)
== END ==
LOC: M LAB REF 16:26
PROVIDERS: ATTEND Nurse Practitioner Family
DX: I10 Essential (primary) hypertension (principal); Z13.228 Encounter for screening for other metabolic disorders

== ENCOUNTER → 2022-05-23 | Outpatient (CLI) | payer OTHER | LOC: M SOG 07:57 | PROVIDERS: ATTEND Orthopaedic Surgery | DX: M25.569 Pain in unspecified knee (principal); M17.0 Bilateral primary osteoarthritis of knee ==

== ENCOUNTER → 2022-10-22 | Outpatient (CLI) | payer OTHER | LOC: M RAD 11:16 | PROVIDERS: ATTEND Surgery | DX: K40.90 Unilateral inguinal hernia, without obstruction or gangrene, not specified as recurrent (principal) ==

== ENCOUNTER → 2022-11-14 | Outpatient (CLI) | payer OTHER ==
[2022-11-14 16:46] LABS: BASO # 0.1 10^3/uL (0.0-0.2); BASO % 0.9 % (0.0-1.0); EOS # 0.1 10^3/uL (0.0-0.5); EOS % 1.9 % (0.0-3.0); HEMATOCRIT 39.7 % (42.0-52.0); HEMOGLOBIN 12.9 g/dl (13.5-17.5); LYMPH # 1.6 10^3/uL (1.5-5.0); LYMPH % 28.3 % (24.0-44.0); MEAN CORPUSCULAR HEMOGLOBIN 32.6 pg (27.0-33.0); MEAN CORPUSCULAR HGB CONC 32.5 g/dl (32.0-36.5); MEAN CORPUSCULAR VOLUME 100.3 fl (80.0-96.0); MONO # 0.7 10^3/uL (0.0-0.8); MONO % 12.4 % (2.0-8.0); NEUTROPHILS # 3.2 10^3/uL (1.5-8.5); NEUTROPHILS % 56.1 % (36.0-66.0); PLATELET COUNT, AUTOMATED 204 10^3/uL (150-450); RED BLOOD COUNT 3.96 10^6/uL (4.30-6.10); WHITE BLOOD COUNT 5.7 10^3/uL (4.0-10.0)
[2022-11-14 17:11] LABS: BLOOD UREA NITROGEN 20 MG/DL (9-23); CALCIUM LEVEL 8.7 MG/DL (8.3-10.6); CARBON DIOXIDE LEVEL 27 MMOL/L (20-31); CHLORIDE LEVEL 109 MMOL/L (98-107); CREATININE FOR GFR 1.19 MG/DL (0.70-1.30); GLOMERULAR FILTRATION RATE > 60.0 (>49); GLUCOSE, FASTING 98 MG/DL (74-106); POTASSIUM SERUM 3.9 MMOL/L (3.5-5.1); SODIUM LEVEL 142 MMOL/L (136-145)
== END ==
LOC: M LAB 16:14
PROVIDERS: ATTEND Nurse Practitioner
DX: I67.5 Moyamoya disease (principal)

== ENCOUNTER → 2023-04-22 | Outpatient (REF) | payer OTHER ==
[2023-04-22 17:25] LABS: ALBUMIN 3.9 G/DL (3.2-5.2); ALKALINE PHOSPHATASE 90 U/L (46-116); ALT/SGPT 36 U/L (7.0-40); AST/SGOT 22 U/L (<34); BILIRUBIN,DIRECT 0.2 MG/DL (<0.4); BILIRUBIN,TOTAL 0.7 MG/DL (0.3-1.2); BLOOD UREA NITROGEN 18 MG/DL (9-23); CALCIUM LEVEL 8.9 MG/DL (8.3-10.6); CARBON DIOXIDE LEVEL 29 MMOL/L (20-31); CHLORIDE LEVEL 110 MMOL/L (98-107); CHOLESTEROL LEVEL 128 MG/DL (<200); CHOLESTEROL RISK RATIO 1.82 (<5); CREATININE FOR GFR 0.99 MG/DL (0.70-1.30); GLOMERULAR FILTRATION RATE > 60.0 (>49); GLUCOSE, FASTING 84 MG/DL (74-106); HDL CHOLESTEROL 70.2 MG/DL (>40); LDL CHOLESTEROL 46.8 MG/DL (<100); NON-HDL-C 57.8 MG/DL; POTASSIUM SERUM 4.2 MMOL/L (3.5-5.1); SODIUM LEVEL 144 MMOL/L (136-145); TOTAL PROTEIN 7.1 G/DL (5.7-8.2); TRIGLYCERIDES LEVEL 55 MG/DL (<150)
[2023-04-22 17:27] LABS: THYROID STIMULATING HORMONE 1.574 uIU/ML (0.55-4.78)
[2023-04-22 17:42] LABS: HEMOGLOBIN A1c 5.6 % (4.0-6.0)
== END ==
LOC: M LAB REF 16:35
PROVIDERS: ATTEND Nurse Practitioner Family
DX: I10 Essential (primary) hypertension (principal); Z68.30 Body mass index [BMI] 30.0-30.9, adult; Z91.89 Other specified personal risk factors, not elsewhere classified; F10.10 Alcohol abuse, uncomplicated

== ENCOUNTER → 2023-05-09 | Outpatient (CLI) | payer OTHER | LOC: M RAD 16:41 | PROVIDERS: ATTEND Nurse Practitioner Family | DX: M54.2 Cervicalgia (principal); M47.812 Spondylosis without myelopathy or radiculopathy, cervical region ==

== ENCOUNTER → 2023-06-20 | Outpatient (CLI) | payer OTHER ==
[2023-06-20 18:11] LABS: BASO # 0.1 10^3/uL (0.0-0.2); BASO % 0.9 % (0.0-1.0); EOS # 0.1 10^3/uL (0.0-0.5); EOS % 2.1 % (0.0-3.0); HEMATOCRIT 43.8 % (42.0-52.0); HEMOGLOBIN 14.6 g/dl (13.5-17.5); LYMPH # 2.2 10^3/uL (1.5-5.0); LYMPH % 38.7 % (24.0-44.0); MEAN CORPUSCULAR HEMOGLOBIN 32.9 pg (27.0-33.0); MEAN CORPUSCULAR HGB CONC 33.3 g/dl (32.0-36.5); MEAN CORPUSCULAR VOLUME 98.6 fl (80.0-96.0); MONO # 0.6 10^3/uL (0.0-0.8); MONO % 10.1 % (2.0-8.0); NEUTROPHILS # 2.7 10^3/uL (1.5-8.5); NEUTROPHILS % 47.9 % (36.0-66.0); PLATELET COUNT, AUTOMATED 191 10^3/uL (150-450); RED BLOOD COUNT 4.44 10^6/uL (4.30-6.10); WHITE BLOOD COUNT 5.7 10^3/uL (4.0-10.0)
[2023-06-20 18:37] LABS: BLOOD UREA NITROGEN 16 MG/DL (9-23); CALCIUM LEVEL 9.8 MG/DL (8.3-10.6); CARBON DIOXIDE LEVEL 31 MMOL/L (20-31); CHLORIDE LEVEL 104 MMOL/L (98-107); CREATININE FOR GFR 0.98 MG/DL (0.70-1.30); GLOMERULAR FILTRATION RATE > 60.0 (>49); GLUCOSE, FASTING 91 MG/DL (74-106); POTASSIUM SERUM 4.1 MMOL/L (3.5-5.1); SODIUM LEVEL 141 MMOL/L (136-145)
== END ==
LOC: M RAD 16:56
PROVIDERS: ATTEND Nurse Practitioner Family
DX: Z01.818 Encounter for other preprocedural examination (principal)

== ENCOUNTER 2023-08-09 06:37 | Day surgery (SDC) | payer OTHER ==
[~2023-08-09] VITALS: Ht 172.7 cm; Wt 92.8 kg
[~2023-08-09 06:37] MED LIST changes: +BRIL90TA PO; +HYDR-3490 PO; +LOSA50TA28 PO
[2023-08-09] MEDS ORDERED: propofoL 200 MG/20 ML VIAL As Ordered ONE (07:01)
[2023-08-09] MEDS ORDERED: LIDOCAINE 2% 100MG/5ML SDV (FOR ANES.) As Ordered ONE (07:03)
[2023-08-09] MEDS: NS 1,000 ML IV ONE (07:14)
[2023-08-09 08:13] VITALS: BP 135/72; O2SAT 99
== END 2023-08-09 08:18 | disposition home or self-care (01) ==
LOC: M OPP 06:37
PROVIDERS: ATTEND Surgery
DX: Z12.11 Encounter for screening for malignant neoplasm of colon (principal); K57.30 Diverticulosis of large intestine without perforation or abscess without bleeding; Z99.89 Dependence on other enabling machines and devices; I10 Essential (primary) hypertension; Z86.73 Personal history of transient ischemic attack (TIA), and cerebral infarction without residual deficits; Z79.02 Long term (current) use of antithrombotics/antiplatelets; Z79.82 Long term (current) use of aspirin; Z79.899 Other long term (current) drug therapy; G47.30 Sleep apnea, unspecified

== ENCOUNTER → 2024-06-26 | Outpatient (CLI) | payer OTHER ==
[2024-06-26 13:31] LABS: BASO % 0.8 % (0.0-1.0); EOS # 0.2 10^3/uL (0.0-0.5); EOS % 3.8 % (0.0-3.0); HEMATOCRIT 42.6 % (42.0-52.0); HEMOGLOBIN 14.1 g/dl (13.5-17.5); LYMPH # 1.4 10^3/uL (1.5-5.0); LYMPH % 28.3 % (24.0-44.0); MEAN CORPUSCULAR HEMOGLOBIN 32.6 pg (27.0-33.0); MEAN CORPUSCULAR HGB CONC 33.1 g/dl (32.0-36.5); MEAN CORPUSCULAR VOLUME 98.4 fl (80.0-96.0); MONO # 0.6 10^3/uL (0.0-0.8); MONO % 11.9 % (2.0-8.0); NEUTROPHILS # 2.8 10^3/uL (1.5-8.5); NEUTROPHILS % 54.8 % (36.0-66.0); PLATELET COUNT, AUTOMATED 201 10^3/uL (150-450); RED BLOOD COUNT 4.33 10^6/uL (4.30-6.10); WHITE BLOOD COUNT 5.1 10^3/uL (4.0-10.0)
[2024-06-26 14:02] LABS: THYROXINE (T4) 6.9 UG/DL (4.5-10.9)
[2024-06-26 14:05] LABS: THYROID STIMULATING HORMONE 0.752 uIU/ML (0.55-4.78)
[2024-06-26 14:08] LABS: ALBUMIN 4.2 G/DL (3.2-5.2); ALKALINE PHOSPHATASE 100 U/L (40-129); ALT/SGPT 41 U/L (7.0-40); AST/SGOT 32 U/L (<34); BILIRUBIN,TOTAL 1.3 MG/DL (0.3-1.2); BLOOD UREA NITROGEN 13 MG/DL (9-23); CALCIUM LEVEL 9.4 MG/DL (8.3-10.6); CARBON DIOXIDE LEVEL 28 MMOL/L (20-31); CHLORIDE LEVEL 104 MMOL/L (98-107); CHOLESTEROL LEVEL 155 MG/DL (<200); CHOLESTEROL RISK RATIO 1.78 (<5); CREATININE FOR GFR 0.89 MG/DL (0.70-1.30); FREE THYROXINE INDEX 2.7 % (1.4-3.8); GLOMERULAR FILTRATION RATE > 90.0 (>49); GLUCOSE, FASTING 77 MG/DL (74-106); HDL CHOLESTEROL 86.8 MG/DL (>40); NON-HDL-C 68.2 MG/DL; POTASSIUM SERUM 4.1 MMOL/L (3.5-5.1); SODIUM LEVEL 141 MMOL/L (136-145); T UPTAKE 39.1 % (22.5-37.0); TOTAL PROTEIN 7.7 G/DL (5.7-8.2); TRIGLYCERIDES LEVEL 61 MG/DL (<150)
[2024-06-26 14:11] LABS: HEMOGLOBIN A1c 5.2 % (4.0-6.0)
== END ==
LOC: M PLALAB 11:59
PROVIDERS: ATTEND Psychiatry & Neurology Neurology
DX: E78.5 Hyperlipidemia, unspecified (principal); E07.9 Disorder of thyroid, unspecified; E11.9 Type 2 diabetes mellitus without complications; Z86.73 Personal history of transient ischemic attack (TIA), and cerebral infarction without residual deficits

== ENCOUNTER → 2024-11-16 | Outpatient (CLI) | payer OTHER ==
[2024-11-16 13:26] LABS: ALT/SGPT 37.0 U/L (7.0-40); AST/SGOT 26.0 U/L (<34); CALCIUM LEVEL 9.1 MG/DL (8.3-10.6); CARBON DIOXIDE LEVEL 27.0 MMOL/L (20-31); CHLORIDE LEVEL 105.0 MMOL/L (98-107); CREATININE FOR GFR 1.02 MG/DL (0.70-1.30); GLOMERULAR FILTRATION RATE 83.1 (>49); POTASSIUM SERUM 4.3 MMOL/L (3.5-5.1); PSA SCREENING 3.0 NG/ML (< 4.00); SODIUM LEVEL 142.0 MMOL/L (136-145)
== END ==
LOC: M WUC 10:21
PROVIDERS: ATTEND Nurse Practitioner Family
DX: Z12.5 Encounter for screening for malignant neoplasm of prostate (principal)
CPT/HCPCS: 36415; 80048; 80076; G0103